=== PATIENT | female | born 2000 | race Two or more races ===

== ENCOUNTER 2024-08-19 02:53 | Emergency (ER) | payer OTHER ==
[~2024-08-19] VITALS: Ht 162.6 cm; Wt 82.1 kg
[2024-08-19] MEDS ORDERED: METOCLOPRAMIDE HCL 5 MG/ML VIAL IM STA (04:13)
[2024-08-19] MEDS ORDERED: 0.9 % SODIUM CHLORIDE 250 ML IV STA (04:14)
[2024-08-19] MEDS ORDERED: HYOSCYAMINE SULFATE 0.125 MG TAB.SUBL SL ONE (04:15)
[2024-08-19] MEDS ORDERED: FAMOtidine 10 MG/ML (4ML VIAL) IV PUSH STA (04:15)
[2024-08-19] MEDS ORDERED: HYOSCYAMINE SULFATE 0.125 MG TAB.SUBL ONE (04:16)
[2024-08-19] MEDS ORDERED: METOCLOPRAMIDE HCL 5 MG/ML VIAL ONE (04:16)
[2024-08-19] MEDS ORDERED: FAMOTIDINE/PF 20 MG/2 ML VIAL ONE (04:16)
== END 2024-08-19 06:28 | disposition home or self-care (01) ==
LOC: ER 02:53
DX: Z34.90 Encounter for supervision of normal pregnancy, unspecified, unspecified trimester (principal); Z3A.16 16 weeks gestation of pregnancy; R12 Heartburn; K21.9 Gastro-esophageal reflux disease without esophagitis; R10.9 Unspecified abdominal pain
CPT/HCPCS: 96365; 96372; 99282; J2765; J3490; J7030

== ENCOUNTER 2024-08-31 03:48 | Emergency (ER) | payer OTHER ==
[~2024-08-31] VITALS: Ht 162.6 cm; Wt 83.9 kg
[2024-08-31] MEDS ORDERED: MORPHINE SULFATE 4 MG/ML VIAL IV STA (04:21)
[2024-08-31] MEDS ORDERED: 0.9 % SODIUM CHLORIDE 1,000 ML IV STA (04:21)
[2024-08-31 06:46] LABS: BASO % 0.2 % (0.1-1.2); EOS # 0.04 (0.04-0.54); EOS % 0.4 % (0.7-7.0); HEMOGLOBIN 11.1 g/dL (11.2-15.7); LYMPH # 1.39 (1.18-3.74); LYMPH % 14.1 % (19.3-53.1); MONO # 0.49 (0.24-0.82); NEUT # 7.91 (1.56-6.13); PLATELET COUNT 163 K/uL (163-369); RED BLOOD COUNT 3.97 M/uL (3.93-5.22); RED CELL DISTRIBUTION WIDTH 13.9 % (11.6-14.4)
[2024-08-31 06:48] LABS: URINE APPEARANCE Cloudy; URINE BACTERIA 112.6 uL (0.0-1933); URINE BILIRRUBIN Negative (NEGATIVE); URINE BLOOD Large; URINE COLOR Yellow; URINE GLUCOSE Negative (NEGATIVE); URINE LEUKOCYTE Large; URINE NITRATE Negative; URINE UROBILINOGEN 0.2 E.U./dl; URINE WBC 425.4 uL (0.0-23.2)
[2024-08-31 07:01] LABS: TYPE CELLS SQUAMOUS; URINE CAST 0.14 uL (0.0-1.40); URINE EPITHELIAL CELLS > 201.7 uL (0.0-38.8); URINE KETONE 40 (NEGATIVE); URINE PROTEIN 100 (NEGATIVE)
[2024-08-31 08:24] LABS: ALBUMIN 3.1 gm/dL (3.4-5.0); BILIRUBIN TOTAL 0.21 mg/dL (0.3-1.2); CREATININE SERUM 0.45 mg/dL (0.55-1.02); GFR 169.76; GLOBULINA 3.6 G/DL (2.4-3.5); POTASSIUM 4.04 mEq/L (3.5-5.1); TOTAL PROTEIN 6.7 gm/dL (6.4-8.2)
== END 2024-08-31 06:57 | disposition home or self-care (01) ==
LOC: ER 03:52
DX: O26.892 Other specified pregnancy related conditions, second trimester (principal); R10.2 Pelvic and perineal pain; Z3A.18 18 weeks gestation of pregnancy

== ENCOUNTER 2024-09-01 13:39 | Emergency (ER) | payer OTHER ==
[~2024-09-01] VITALS: Ht 162.6 cm; Wt 63.5 kg
== END 2024-09-01 14:48 | disposition home or self-care (01) ==
LOC: ER 13:49
DX: O20.8 Other hemorrhage in early pregnancy (principal); Z3A.18 18 weeks gestation of pregnancy

== ENCOUNTER 2024-11-15 13:08 | Outpatient (CLI) | payer OTHER | END 2024-11-15 14:13 | disposition home or self-care (01) | LOC: NST 13:08 | PROVIDERS: ATTEND Obstetrics & Gynecology | DX: Z34.83 Encounter for supervision of other normal pregnancy, third trimester (principal) ==

== ENCOUNTER 2024-11-30 13:12 | Outpatient (CLI) | payer OTHER ==
[~2024-11-30] VITALS: Ht 162.6 cm; Wt 82.6 kg
[2024-11-30 12:25] VITALS: BP 101/69; O2SAT 100
[2024-11-30] MEDS ORDERED: MAGNESIUM SULFATE IN WATER 500 ML IV SCH (13:30)
[2024-11-30] MEDS ORDERED: RINGERS SOLUTION,LACTATED 1,000 ML IV SCH (13:30)
[2024-11-30] MEDS ORDERED: AMPICILLIN SODIUM 2,000 MG VIAL IV ONE (13:30)
[2024-11-30] MEDS ORDERED: BETAMETHASONE ACETATE,SOD PHOS 30 MG/5 ML ML IM ONE (13:45)
[2024-11-30 14:12] LABS: BASO % 0.3 % (0.1-1.2); EOS # 0.05 (0.04-0.54); EOS % 0.6 % (0.7-7.0); LYMPH # 1.43 (1.18-3.74); LYMPH % 16.6 % (19.3-53.1); MEAN PLATELET VOLUME 11.20 fl (9.4-12.4); MONO # 0.63 (0.24-0.82); MONO % 7.3 % (4.7-12.5); NEUT # 6.42 (1.56-6.13); NEUT % 74.7 % (34.0-71.1); RED CELL DISTRIBUTION WIDTH 12.6 % (11.6-14.4)
[2024-11-30] MEDS ORDERED: AMPICILLIN SODIUM 1,000 MG VIAL ONE ×3 (16:12→23:16)
[2024-11-30] MEDS ORDERED: AMPICILLIN SODIUM 1,000 MG VIAL IV SCH (17:00)
[2024-11-30 17:54] LABS: INR 0.96
[2024-11-30 18:50] LABS: ALT/SGPT 22.0 U/L (12-78); AST/SGOT 16.0 U/L (15-37); BILIRUBIN TOTAL 0.25 mg/dL (0.3-1.2); BUN CREA RATIO 13.0 (7.0-25.0); CREATININE SERUM 0.48 mg/dL (0.55-1.02); GFR 156.33; GLOBULINA 3.8 G/DL (2.4-3.5); GLUCOSE FASTING 92.0 mg/dL (65-100); OSMOLALITY SERUM 280.0 MOSM/KG (275-295)
[2024-11-30 19:28] VITALS: BP 95/63
[2024-11-30 19:53] LABS: URINE APPEARANCE Clear; URINE BACTERIA 95.9 uL (0.0-1933); URINE BILIRRUBIN Negative (NEGATIVE); URINE BLOOD Negative; URINE COLOR Yellow; URINE EPITHELIAL CELLS 6.1 uL (0.0-38.8); URINE KETONE Trace (NEGATIVE); URINE LEUKOCYTE Negative; URINE NITRATE Negative; URINE PROTEIN Negative (NEGATIVE); URINE RBC 11.1 uL (0.0-20.8); URINE UROBILINOGEN 0.2 E.U./dl; URINE WBC 3.8 uL (0.0-23.2)
[2024-11-30 20:02] LABS: URINE CAST 0.43 uL (0.0-1.40); URINE GLUCOSE 100 MG/DL (NEGATIVE)
[2024-11-30 20:06] LABS: URINE MUCUS MODERATE
[2024-11-30] MEDS ORDERED: MAGNESIUM SULFATE IN WATER 0.04 GM/ML IV.SOLN IV ONE (23:15)
[2024-11-30 23:16] VITALS: BP 90/58; O2SAT 95
[2024-11-30] MEDS ORDERED: ACETAMINOPHEN 500 MG GEL..CAP PO ONE (23:23)
[2024-11-30] MEDS ORDERED: ACETAMINOPHEN 500 MG GEL..CAP PO PRN (23:30)
[2024-12-01] MEDS ORDERED: AMPICILLIN SODIUM 1,000 MG VIAL ONE ×2 (03:59→07:48)
[2024-12-01] MEDS ORDERED: ACETAMINOPHEN 500 MG GEL..CAP PO ONE (04:09)
[2024-12-01 04:11] VITALS: BP 109/70
[2024-12-01 07:15] VITALS: BP 116/66
[2024-12-01] MEDS ORDERED: BETAMETHASONE ACETATE,SOD PHOS 30 MG/5 ML ML ONE (10:21)
[2024-12-01] MEDS ORDERED: BETAMETHASONE ACETATE,SOD PHOS 30 MG/5 ML ML IM ONE (13:45)
== END 2024-12-01 10:35 | disposition home or self-care (01) ==
LOC: OBS/DEL 13:12 → LDR 13:12 → OBS/DEL 12-01 10:35 → LDR 12-01 10:35 → EDSTATUS 12-21 15:43
PROVIDERS: ATTEND Obstetrics & Gynecology
DX: O26.893 Other specified pregnancy related conditions, third trimester (principal); R10.2 Pelvic and perineal pain; O26.843 Uterine size-date discrepancy, third trimester; O36.8130 Decreased fetal movements, third trimester, not applicable or unspecified; O60.03 Preterm labor without delivery, third trimester; Z3A.32 32 weeks gestation of pregnancy

== ENCOUNTER 2024-12-19 10:03 | Outpatient (CLI) | payer OTHER ==
[~2024-12-19] VITALS: Ht 162.6 cm; Wt 80.7 kg
[2024-12-19 09:30] VITALS: BP 103/69
== END 2024-12-19 12:24 | disposition home or self-care (01) ==
LOC: OBS/DEL 10:03
PROVIDERS: ATTEND Obstetrics & Gynecology
DX: O26.893 Other specified pregnancy related conditions, third trimester (principal); Z3A.33 33 weeks gestation of pregnancy

== ENCOUNTER 2024-12-27 09:59 | Outpatient (CLI) | payer OTHER | END 2024-12-27 10:05 | disposition home or self-care (01) | LOC: SONOGRAMA 09:59 | PROVIDERS: ATTEND Obstetrics & Gynecology | DX: Z34.83 Encounter for supervision of other normal pregnancy, third trimester (principal) ==

== ENCOUNTER 2025-01-05 11:16 | Inpatient (IN) | payer OTHER ==
[~2025-01-05] VITALS: Ht 162.6 cm; Wt 2.7 kg
[2025-01-05 08:38] VITALS: BP 105/73
[2025-01-05 12:30] VITALS: BP 105/73
[2025-01-05] MEDS ORDERED: AMPICILLIN SODIUM 2,000 MG VIAL IV ONE (12:33)
[2025-01-05 13:36] LABS: BASO % 0.3 % (0.1-1.2); EOS # 0.03 (0.04-0.54); EOS % 0.4 % (0.7-7.0); LYMPH # 1.73 (1.18-3.74); LYMPH % 23.6 % (19.3-53.1); MEAN PLATELET VOLUME 11.30 fl (9.4-12.4); MONO # 0.51 (0.24-0.82); MONO % 7.0 % (4.7-12.5); NEUT # 5.02 (1.56-6.13); NEUT % 68.4 % (34.0-71.1); RED CELL DISTRIBUTION WIDTH 12.7 % (11.6-14.4)
[2025-01-05] MEDS ORDERED: B-12500 MCG PO (13:37)
[2025-01-05] MEDS ORDERED: FOLIC ACID0.8 M1 PO (13:37)
[2025-01-05 13:53] LABS: INR < 0.93
[2025-01-05 14:03] LABS: ALT/SGPT 18.0 U/L (12-78); AST/SGOT 15.0 U/L (15-37); BILIRUBIN TOTAL 0.35 mg/dL (0.3-1.2); BUN CREA RATIO 10.0 (7.0-25.0); CREATININE SERUM 0.49 mg/dL (0.55-1.02); GFR 152.66; GLOBULINA 3.6 G/DL (2.4-3.5); GLUCOSE FASTING 92.0 mg/dL (65-100); OSMOLALITY SERUM 278.0 MOSM/KG (275-295)
[2025-01-05] MEDS ORDERED: MORPHINE SULFATE 4 MG/ML CARTRIDGE IV PRN (15:45)
[2025-01-05 15:59] VITALS: BP 119/78
[2025-01-05] MEDS ORDERED: AMPICILLIN SODIUM 1,000 MG VIAL IV SCH (17:00)
[2025-01-05 19:26] VITALS: BP 106/74
[2025-01-05] MEDS ORDERED: CEFAZOLIN SODIUM 1,000 MG VIAL IV SCH (20:30)
[2025-01-05] MEDS ORDERED: OXYTOCIN 1,000 ML IV ONE (21:00)
[2025-01-05] MEDS ORDERED: KETOROLAC TROMETHAMINE 30 MG VIAL IV SCH (21:00)
[2025-01-05] MEDS ORDERED: OXYTOCIN 10 UNITS/ML VIAL IV ONE (22:30)
[2025-01-05] MEDS ORDERED: ERYTHROMYCIN BASE OPHT 1GM EACH TUBE OP ONE (22:30)
[2025-01-06 03:44] VITALS: BP 101/65
[2025-01-06] MEDS ORDERED: ACETAMINOPHEN 500 MG GEL..CAP PO SCH (06:00)
[2025-01-06 06:46] LABS: BASO % 0.2 % (0.1-1.2); EOS # 0.01 (0.04-0.54); EOS % 0.1 % (0.7-7.0); LYMPH # 1.73 (1.18-3.74); LYMPH % 17.7 % (19.3-53.1); MEAN PLATELET VOLUME 10.70 fl (9.4-12.4); MONO # 0.61 (0.24-0.82); MONO % 6.2 % (4.7-12.5); NEUT # 7.40 (1.56-6.13); NEUT % 75.5 % (34.0-71.1); RED CELL DISTRIBUTION WIDTH 12.3 % (11.6-14.4)
[2025-01-06 08:00] VITALS: BP 97/65
[2025-01-06] MEDS ORDERED: DOCUSATE SODIUM 100MG CAP PO SCH (09:00)
[2025-01-06] MEDS ORDERED: PNV,CALCIUM 72/IRON/FOLIC ACID 1 TAB TABLET PO SCH (09:00)
[2025-01-06] MEDS ORDERED: SIMETHICONE 125 MG CAPSULE PO SCH (09:00)
[2025-01-06] MEDS ORDERED: GABAPENTIN 300 MG CAPSULE PO SCH (09:00)
[2025-01-06 16:00] VITALS: BP 97/65
[2025-01-07 00:46] VITALS: BP 98/65
[2025-01-07 04:00] VITALS: BP 103/62
[2025-01-07 10:00] VITALS: BP 110/76
== END 2025-01-07 16:57 | disposition home or self-care (01) | DRG 788 ==
LOC: OBS/DEL 11:16 → LDR 12:47 → OBS/DEL 12:47 → O/R 21:02 → OB/GYN 01-06 00:01
PROVIDERS: ADMIT Obstetrics & Gynecology Gynecology; ATTEND Obstetrics & Gynecology Gynecology
PROC: 4A1HXCZ Monitoring of Products of Conception, Cardiac Rate, External Approach (ICD-10-PCS; 2025-01-05)
PROC: 10D00Z1 Extraction of Products of Conception, Low, Open Approach (ICD-10-PCS; principal; 2025-01-05 22:00)
DX: O60.14X0 Preterm labor third trimester with preterm delivery third trimester, not applicable or unspecified (principal); Z3A.36 36 weeks gestation of pregnancy; Z37.0 Single live birth